=== PATIENT | male | born 1955 | race Caucasian/White ===

== ENCOUNTER 2020-06-30 07:37 | Outpatient (CLI) | payer BC, SELFPAY ==
--- NOTE | 2020-06-30 07:55 | USCV_ITS ---
Marciano Salazar Age: 65 Gender: M : 1955 Exam Date: 06/30/2020 08:06 Ordering Phys: Gabe Peña M.D ([email or web address]) Technologist: Juanjose Boyd Exam Location: [facility] [place] Indication: BP: 140 / 80 HR: 73 Rhythm: Sinus Technical Quality: MEASUREMENTS (Male / Female) Normal Values 2D ECHO LV Diastolic Diameter PLAX 4.7 cm 4.2 - 5.9 / 3.9 - 5.3 cm LV Systolic Diameter PLAX 3.0 cm IVS Diastolic Thickness 0.8 cm 0.6 - 1.0 / 0.6 - 0.9 cm IVS Systolic Thickness 1.1 cm LVPW Diastolic Thickness 1.0 cm 0.6 - 1.0 / 0.6 - 0.9 cm LVPW Systolic Thickness 1.1 cm LVOT Diameter 2.0 cm LV Ejection Fraction 2D Teich 64.3 % LV Ejection Fraction MOD 2C 54.7 % LV Ejection Fraction 2C AL 55.7 % LA Diameter 5.3 cm LA Width 4.9 cm LA Height 6.3 cm RA Width 4.2 cm RA Height 5.2 cm M-MODE LV Diastolic Diameter MM 5.6 cm 4.2 - 5.9 / 3.9 - 5.3 cm LV Systolic Diameter MM 3.5 cm LV Ejection Fraction MM Teich 67.0 % IVS Diastolic Thickness MM 0.8 cm 0.6 - 1.0 / 0.6 - 0.9 cm IVS Systolic Thickness MM 1.7 cm LVPW Diastolic Thickness MM 1.3 cm 0.6 - 1.0 / 0.6 - 0.9 cm LVPW Systolic Thickness MM 1.7 cm RV Diastolic Diameter MM 1.5 cm Aortic Annulus Diameter 2.9 cm LA Ao Ratio MM 1.8 MV E Point Septal Separation 1.6 cm DOPPLER AV Peak Velocity 218.0 cm/s LVOT Peak Velocity 95.0 cm/s AV Area Cont Eq vti 1.7 cm squared AV Area Cont Eq pk 1.4 cm squared MV Area PHT 5.0 cm squared Mitral E to A Ratio 0.8 MV E' Velocity 9.0 cm/s Mitral E to MV E' Ratio 8.7 Mitral E to LV E' Lateral Ratio 8.7 Mitral E to LV E' Septal Ratio 8.8 TR Peak Velocity 193.0 cm/s TR Peak Gradient 14.9 mmHg TV Peak E Velocity 100.0 cm/s Right Atrial Pressure 3.0 mmHg Pulmonary Artery Systolic Pressu 17.9 mmHg FINDINGS Left Ventricle Normal left ventricular size, systolic function and wall thickness, with no regional wall motion abnormalities. Normal left ventricular wall thickness. Diastolic dysfunction is noted. Right Ventricle The right ventricle is normal in size and function. Right Atrium The right atrium is normal in size. Left Atrium The left atrium is normal in size. Mitral Valve Structurally normal mitral valve without significant stenosis or prolapse. There is no mitral regurgitation. Aortic Valve Bioprosthetic valve is noted. There is poor visualization of the valve. However no significant stenosis or regurgitation is noted. Tricuspid Valve Structurally normal tricuspid valve without significant stenosis or regurgitation. Insufficient TR jet to calculate RVSP. Pulmonic Valve Structurally normal pulmonic valve without significant stenosis. There is trace pulmonic regurgitation. Pericardium Normal pericardium without effusion. Aorta Normal ascending aorta dimension. CONCLUSIONS This is technically limited study. LV systolic function is normal with EF of 55 to 60%. Diastolic dysfunction is noted. Bioprosthetic valve is noted in aortic position without any significant stenosis or regurgitation. Compared to prior echo of 06/16/2015 no significant changes are noted. Gabe Peña MD (Electronically Signed) Final Date: 05 July 2020 18:01 S
== END 2020-06-30 07:38 | disposition home or self-care (01) ==
PROVIDERS: PCP Nurse Practitioner Family; Visit Provider Internal Medicine
DX: Z95.3 Presence of xenogenic heart valve (principal)
CPT/HCPCS: 93306

== ENCOUNTER → 2022-09-18 09:49 | Outpatient (BNVA) | payer MEDICARE, BC, SELFPAY | PROVIDERS: PCP Nurse Practitioner Family; Visit Provider Nurse Practitioner Family | DX: I10 Essential (primary) hypertension (principal); Z95.2 Presence of prosthetic heart valve | CPT/HCPCS: 99214 ==

== ENCOUNTER → 2023-03-26 13:52 | Outpatient (BNVA) | payer MEDICARE, BC, SELFPAY | PROVIDERS: PCP Nurse Practitioner Family; Visit Provider Internal Medicine | DX: I10 Essential (primary) hypertension (principal); Z95.2 Presence of prosthetic heart valve | CPT/HCPCS: 99214 ==

== ENCOUNTER 2023-04-12 14:35 | Outpatient (CLI) | payer MEDICARE, BC, SELFPAY ==
--- NOTE | 2023-04-12 15:00 | USCV_ITS ---
Marciano Salazar Age: 68 Gender: M : 1955 Exam Date: 04/12/2023 15:04 Ordering Phys: Gabe Peña M.D ([email or web address]) Technologist: CT Exam Location: [facility] [place] Indication: ao valve replacement BP: 145 / 70 HR: 75 Rhythm: Sinus Technical Quality: Adequate MEASUREMENTS (Male / Female) Normal Values 2D ECHO LV Diastolic Diameter PLAX 2.8 cm 4.2 - 5.9 / 3.9 - 5.3 cm LV Systolic Diameter PLAX 3.2 cm IVS Diastolic Thickness 3.7 cm 0.6 - 1.0 / 0.6 - 0.9 cm IVS Systolic Thickness 1.5 cm LVPW Diastolic Thickness 0.5 cm 0.6 - 1.0 / 0.6 - 0.9 cm LVPW Systolic Thickness 1.6 cm LVOT Diameter 2.0 cm LV Ejection Fraction 2D Teich 36.1 % LV Ejection Fraction MOD 2C 55.1 % LV Ejection Fraction 2C AL 56.4 % LA Diameter 4.7 cm Aorta at Sinotubular Diameter 2.5 cm IVC Diameter 1.9 cm M-MODE Aortic Annulus Diameter 3.0 cm LA Ao Ratio MM 1.6 DOPPLER AV Peak Velocity 230.7 cm/s LVOT Peak Velocity 105.0 cm/s AV Area Cont Eq vti 1.9 cm squared AV Area Cont Eq pk 1.5 cm squared MV Peak Velocity 137.0 cm/s MV Area PHT 6.7 cm squared Mitral E to A Ratio 1.0 MV E' Velocity 49.0 cm/s Mitral E to MV E' Ratio 9.1 Mitral E to LV E' Lateral Ratio 10.2 Mitral E to LV E' Septal Ratio 8.4 TR Peak Velocity 102.3 cm/s TR Peak Gradient 4.2 mmHg TV Peak E Velocity 99.0 cm/s Right Atrial Pressure 3.0 mmHg Pulmonary Artery Systolic Pressu 7.2 mmHg PV Peak Velocity 110.0 cm/s FINDINGS Left Ventricle Left ventricle is normal in size. LV systolic function is normal with EF of 50 to 55%. No regional wall motion abnormalities are seen. Right Ventricle Normal in size and function Right Atrium Normal in size Left Atrium Normal size Mitral Valve Grossly normal. Trace mitral regurgitation. Aortic Valve Possible prosthetic aortic valve. Not well visualized. Mild aortic stenosis with mean gradient across the aortic valve of 9.2 mmHg. Aortic valve area is 1.81 cm2. Tricuspid Valve Mild tricuspid regurgitation. Insufficient TR jet to calulate RVSP Pulmonic Valve Not well visualized Pericardium Normal Aorta Normal in size IVC Appears to be normal CONCLUSIONS LV systolic function is normal with EF of 50 to 55%. Trace mitral regurgitation Possible prosthetic aortic valve. Not well-visualized. Mild aortic stenosis with aortic valve area 1.81cm2 and mean gradient across aortic valve of 9.2mmHg. Mild tricuspid regurgitation. Compared to prior echocardiogram from 2019, patient now has mild aortic stenosis. Gabe Peña MD (Electronically Signed) Final Date: 21 April 2023 13:26 S
== END 2023-04-12 14:36 | disposition home or self-care (01) ==
PROVIDERS: PCP Nurse Practitioner Family; Visit Provider Internal Medicine
DX: I35.0 Nonrheumatic aortic (valve) stenosis (principal)
CPT/HCPCS: 93306

== ENCOUNTER → 2023-10-01 12:52 | Outpatient (BNVA) | payer MEDICARE, BC, SELFPAY | PROVIDERS: PCP Nurse Practitioner Family; Visit Provider Internal Medicine | DX: I10 Essential (primary) hypertension (principal); Z95.2 Presence of prosthetic heart valve | CPT/HCPCS: 99214 ==

== ENCOUNTER → 2024-04-02 15:45 | Outpatient (BNVA) | payer MEDICARE, BC, SELFPAY | PROVIDERS: PCP Nurse Practitioner Family; Visit Provider Internal Medicine | DX: I10 Essential (primary) hypertension (principal); Z95.2 Presence of prosthetic heart valve | CPT/HCPCS: 99214 ==

== ENCOUNTER 2024-04-17 13:05 | Outpatient (CLI) | payer MEDICARE, BC, SELFPAY ==
--- NOTE | 2024-04-17 13:30 | USCV_ITS ---
Marciano Salazar Age: 69 Gender: M : 1955 Exam Date: 04/17/2024 13:34 Ordering Phys: Gabe Peña M.D ([email or web address]) Technologist: CT Exam Location: [facility] [place] Indication: Tavr BP: 106 / 70 HR: 53 Rhythm: Sinus Technical Quality: Adequate MEASUREMENTS (Male / Female) Normal Values 2D ECHO LV Ejection Fraction MOD 4C 53.7 % LV Ejection Fraction MOD 2C 56.1 % LV Ejection Fraction 2C AL 55.8 % RA Systolic Volume 4C AL 67.8 ml RA Systolic Volume 4C MOD 65.3 ml LA Sys Volume AL 71.3 cm cubed LA Sys Volume Index AL 24.4 cm cubed/m squared IVC Diameter 1.9 cm M-MODE LA Ao Ratio MM 1.8 AV Cusp Separation MM 2.0 cm DOPPLER AV Peak Velocity 54.0 cm/s LVOT Peak Velocity 85.0 cm/s MV Peak Velocity 120.0 cm/s MV Area PHT 4.5 cm squared Mitral E to A Ratio 1.2 TR Peak Velocity 130.0 cm/s TR Peak Gradient 6.8 mmHg TV Peak E Velocity 82.0 cm/s Right Atrial Pressure 3.0 mmHg Pulmonary Artery Systolic Pressu 9.8 mmHg PV Peak Velocity 94.5 cm/s FINDINGS Left Ventricle Left ventricle is normal size. LV systolic function is normal with EF of 55 to 60%. No regional wall motion abnormalities are seen. Right Ventricle Normal in size and function Right Atrium Normal in size Left Atrium Dilated Mitral Valve Structurally normal mitral valve. Mild mitral regurgitation. Aortic Valve Bioprosthetic aortic valve is seen. No significant stenosis or regurgitation. Tricuspid Valve Insufficient TR jet to calculate RVSP. Pulmonic Valve Mild pulmonic regurgitation. Pericardium Normal Aorta Normal in size IVC Appears to be normal CONCLUSIONS LV systolic function is normal with EF 55 to 60%. Left atrial dilation Mild mitral regurgitation Bioprosthetic aortic valve is seen. Functioning normally Mild pulmonic regurgitation. Gabe Peña MD (Electronically Signed) Final Date: 01 May 2024 12:03 S
== END 2024-04-17 13:06 | disposition home or self-care (01) ==
PROVIDERS: PCP Nurse Practitioner Family; Visit Provider Internal Medicine
DX: I51.7 Cardiomegaly (principal); Z95.2 Presence of prosthetic heart valve; R06.02 Shortness of breath
CPT/HCPCS: 93306

== ENCOUNTER → 2024-10-12 12:06 | Outpatient (BNVA) | payer MEDICARE, BC, SELFPAY | PROVIDERS: PCP Nurse Practitioner Family; Visit Provider Internal Medicine | DX: I10 Essential (primary) hypertension (principal); Z95.2 Presence of prosthetic heart valve | CPT/HCPCS: 99213 ==

== ENCOUNTER → 2025-07-12 14:43 | Outpatient (BNVA) | payer MEDICARE, BC, SELFPAY | PROVIDERS: PCP Nurse Practitioner Family; Visit Provider Internal Medicine | DX: I10 Essential (primary) hypertension (principal); Z95.2 Presence of prosthetic heart valve | CPT/HCPCS: 99214 ==